=== PATIENT | female | born 1990 | race Two or more races ===

== ENCOUNTER 2019-05-02 14:14 | Outpatient (CLI) | payer OTHER ==
[2019-05-02 16:21] LABS: APPEARANCE,URINE SLIGHTLY-CLOUDY; BILIRUBIN,URINE NEGATIVE (NEGATIVE); COLOR,URINE YELLOW; GLUCOSE, URINE NEGATIVE (NEGATIVE); KETONES,URINE 20 mg/dL (NEGATIVE); LEUKOCYTE ESTERASE,URINE NEGATIVE (NEGATIVE); NITRITE,URINE NEGATIVE (NEGATIVE); PROTEIN,URINE NEGATIVE (NEGATIVE); URINE SPECIFIC GRAVITY 1.005; UROBILINOGEN,URINE NEGATIVE mg/dL (<2.0)
--- NOTE | 2019-05-02 16:28 | Non Stress Test Report ---
Non Stress Test Datetime Report Generated by CPN: 05/02/2019 16:28 DEMOGRAPHIC EGA NST: 37.6 INDICATION Indication for Study (NST) Other: LC MONITORING Monitor Explained: Monitor Explained; Test Explained; Patient Verbalized Understanding Time on Monitor: 05/02/2019 14:30 Time off Monitor: 05/02/2019 15:59 NST Duration: 89 NST INTERVENTIONS NST Interventions: PO Hydration Physician Notified NST: J Groves CNM BABY A: [id number] BABY A Movement : Present Contraction Frequency : irregular FHR Baseline : 125 Accelerations : 15X15 Decelerations : None Variability : Moderate 6-25bpm NST Review: Meets Criteria for Reactive NST NST Review and Verified By : Richie Li RN NST Results: Reactive NST COMMENTS NST Comments: CNM on unit reviewing FHT strip NST REPORT Report Trigger: Send Report
[2019-05-02 16:37] LABS: URINE AMPHETAMINES SCREEN NEGATIVE; URINE BARBITURATES SCREEN NEGATIVE; URINE BENZODIAZEPINES SCREEN NEGATIVE; URINE COCAINE SCREEN NEGATIVE; URINE MARIJUANA (THC) SCREEN NEGATIVE; URINE METHADONE SCREEN NEGATIVE; URINE PHENCYCLIDINE SCREEN NEGATIVE
== END 2019-05-02 16:09 | disposition home or self-care (01) ==
LOC: LC 14:14
PROVIDERS: ATTEND Student in an Organized Health Care Education/Training Program
PROC: 4A1HXCZ Monitoring of Products of Conception, Cardiac Rate, External Approach (ICD-10-PCS; principal; 2019-05-02)
DX: Z34.03 Encounter for supervision of normal first pregnancy, third trimester (principal); Z3A.37 37 weeks gestation of pregnancy
CPT/HCPCS: 59025; 80307; 81001; 84112

== ENCOUNTER 2019-05-17 03:15 | Inpatient (IN) | payer OTHER ==
[2019-05-17 04:13] LABS: APPEARANCE,URINE CLOUDY; BILIRUBIN,URINE NEGATIVE (NEGATIVE); COLOR,URINE YELLOW; GLUCOSE, URINE NEGATIVE (NEGATIVE); KETONES,URINE NEGATIVE (NEGATIVE); LEUKOCYTE ESTERASE,URINE TRACE (NEGATIVE); NITRITE,URINE NEGATIVE (NEGATIVE); PROTEIN,URINE NEGATIVE (NEGATIVE); URINE SPECIFIC GRAVITY 1.024; UROBILINOGEN,URINE NEGATIVE mg/dL (<2.0)
[2019-05-17] MEDS ORDERED: LIDOCAINE 1% INJ-PF (10 MG/ML) 30 ML SDV ONE (04:15)
[2019-05-17] MEDS ORDERED: PENICILLIN G-K 5 MILLION UNIT VIAL ONE ×4 (04:15→16:50)
[2019-05-17] MEDS ORDERED: OXYTOCIN 10 UNIT/ML VIAL ONE (04:15)
[2019-05-17] MEDS ORDERED: OXYTOCIN/NORMAL SALINE 20 UNIT/1,000 ML RTUINJ ONE (04:15)
[2019-05-17] MEDS ORDERED: MISOPROSTOL 0.2 MG TABLET ONE (04:15)
[2019-05-17] MEDS ORDERED: RINGERS SOLUTION,LACTATED 1,000 ML IV ONE (04:19)
[2019-05-17] MEDS ORDERED: PENICILLIN G POTASSIUM 5,000,000 UNIT in DEXTROSE 5%-WATER 100 ML IV ONE (04:19)
[2019-05-17 04:28] LABS: URINE AMPHETAMINES SCREEN NEGATIVE; URINE BARBITURATES SCREEN NEGATIVE; URINE BENZODIAZEPINES SCREEN NEGATIVE; URINE COCAINE SCREEN NEGATIVE; URINE MARIJUANA (THC) SCREEN NEGATIVE; URINE METHADONE SCREEN NEGATIVE; URINE PHENCYCLIDINE SCREEN NEGATIVE
[2019-05-17] MEDS ORDERED: OXYTOCIN/NORMAL SALINE 20 UNIT/1,000 ML RTUINJ IV PRN ×2 (04:36→19:19)
[2019-05-17 04:54] LABS: ABSOLUTE EOSINOPHILS # (AUTO) 0.1 10^3/uL (0.0-0.6); ABSOLUTE LYMPHOCYTES (AUTO) 2.2 10^3/uL (0.5-4.7); ABSOLUTE MONOCYTES (AUTO) 0.7 10^3/uL (0.1-1.4); ABSOLUTE NEUT (AUTO) 6.3 10^3/uL (1.7-8.2); BASOPHILS % (AUTO) 0.3 % (0-2); EOSINOPHILS % (AUTO) 1.2 % (0-6); HEMOGLOBIN 11.3 g/dL (12.0-15.5); LYMPHOCYTES % (AUTO) 23.8 % (13-45); MEAN CORPUSCULAR HEMOGLOBIN 27.9 pg (27.0-33.4); MEAN CORPUSCULAR HGB CONC 34.2 g/dL (32.0-36.0); MEAN CORPUSCULAR VOLUME 82 fl (80-97); PLATELET COUNT 248 10^3/uL (150-450); RED BLOOD COUNT 4.04 10^6/uL (3.72-5.28); RED CELL DISTRIBUTION WIDTH 15.3 % (11.5-14.0); SEGMENTED NEUTROPHILS % (AUTO) 67.7 % (42-78); TOTAL CELLS COUNTED % (AUTO) 100 %; WHITE BLOOD COUNT 9.3 10^3/uL (4.0-10.5)
--- NOTE | 2019-05-17 06:55 | Admission Physical ---
Datetime Report Generated by CPN: 05/17/2019 06:55 CURRENT ADMISSION Chief Complaint: Uterine Contractions; Suspected Ruptured Membranes Indication for Induction: PROM Admit Impression : Term, Intrauterine ; No Active Labor; Ruptured Membranes Admit Plan: Admit to Unit; Initiate Labor Induction Protocol ALLERGIES Medication Allergies: No Medication Allergies: No Known Allergies (05/17/2019) Latex: No Latex Allergies Food Allergies: none Environmental Allergies: none OBSTETRICAL HISTORY EDC: 05/17/2019 00:00 : 1 Para: 0 Gestational Diabetes: No Rh Sensitization: No Incompetent Cervix: No MARIO: No Infertility: No ART Treatment: No Uterine Anomaly: No IUGR: No Hx Previous C/S: No Macrosomia: No Hx Loss/Stillborn: No PIH: No Hx : No Placenta Previa/Abruption: No Depression/PP Depression: No PTL/PROM: No Post Hemorrhage: No Current Procedures: Ultrasound Obstetrical History Comments: G1 - current SEE RECORDS Alcohol: No Marijuana : No Cocaine: No Other Illicit Drugs: No Cigarettes: Never Smoker. [id number] MEDICAL HISTORY Diabetes: No Blood Transfusion: No Pulmonary Disease (Asthma, TB): No Breast Disease: No Hypertension: No Trophy Assembler Surgery: No Heart Disease: No Hosp/Surgery: Yes Autoimmune Disorder: No Anesthetic Complications: No Kidney Disease: No Abnormal Pap Smear: No Neuro/Epilepsy: No Psychiatric Disorders: No Other Medical Diseases: No Hepatitis/Liver Disease: No Significant Family History: No Varicosities/Phlebitis: No Trauma/Violence : No Thyroid Dysfunction: No Medical History Comments: wisdom teeth removal in 2015. INFECTIOUS HISTORY Gonorrhea: No Genital Herpes: No Chlamydia: No Tuberculosis: No Syphilis: No Hepatitis: No HIV/AIDS Exposure: No Rash or Viral Illness: No HPV: No PHYSICAL EXAM General: Normal HEENT: Normal Neurologic: Normal Thyroid: Deferred Heart: Normal Lungs: Normal Breast: Deferred Back: Normal Abdomen: Normal Genitourinary Exam: Normal Extremities: Normal DTRs: Normal Pelvic Type: Adequate Vital Signs: Reviewed VAGINAL EXAM Dilatation: 1 Effacement: 50 Station: -3 Contraction Comments: irreg to rare MEMBRANES Membranes: Ruptured Amniotic Fluid Color: Clear FETUS A EGA: 40.0 Monitoring: External US FHR- Baseline: 125 Variability: Moderate 6-25bpm Accelerations: 15X15 Decelerations: None FHR Category: Category I Presentation: Vertex Admit Comment: 28yo at 40+0ega presents for SROM a 0230. Clear fluid. GBS positive - PCN for GBS prophy. Begin pitocin for Actim Prom positive. Admit for PROM and anticipate . PLANS FOR LABOR AND DELIVERY Labor and Delivery: None Pain Management: Epidural Feeding Preference: Breast Benefit of Breast Feed Discussed: Yes Circumcision: N/A INFORMED CONSENT Informed Consent Obtained: Vaginal Delivery; Induction of Labor; Risks, Benefits and Alternatives Discussed Signature: with User ID: [email or web address]
[2019-05-17] MEDS: RINGERS SOLUTION,LACTATED 1,000 ML IV PRN ×2 (07:30→11:28)
[2019-05-17] MEDS: PENICILLIN G POTASSIUM 2,500,000 UNIT in DEXTROSE 5%-WATER 50 ML IV SCH ×3 (08:40→16:57)
[2019-05-17] MEDS ORDERED: FENTANYL/BUPIVACAINE/NS/PF 300 MCG/150 ML RTUINJ EPI ONE (12:30)
[2019-05-17] MEDS ORDERED: EPHEDRINE SULFATE INJ 50 MG/1 ML AMPULE ONE (12:30)
[2019-05-17] MEDS ORDERED: BUPIVACAINE HCL 0.25 % INJ/PF (2.5 MG/1 ML) 30 ML VIAL ONE (12:31)
[2019-05-17] MEDS ORDERED: DIPH/PERTUSS(ACELL)/TETANUS VAC/PF 0.5 ML SYR (>=10YO) IM PRN (19:19)
[2019-05-17] MEDS ORDERED: BENZOCAINE/MENTHOL AEROSOL SPRAY 56 ML TOP PRN (19:19)
[2019-05-17] MEDS ORDERED: ACETAMINOPHEN WITH CODEINE #3 TABLET PO PRN ×2 (19:19)
[2019-05-17] MEDS ORDERED: ZOLPIDEM TARTRATE 5 MG TABLET PO PRN (19:19)
[2019-05-17] MEDS ORDERED: DIBUCAINE 1% OINTMENT 28 GM TP PRN (19:19)
[2019-05-17] MEDS ORDERED: ACETAMINOPHEN 325 MG TABLET ONE (19:23)
[2019-05-17] MEDS: IBUPROFEN 800 MG TABLET PO SCH (21:56)
--- NOTE | 2019-05-17 22:06 | Delivery Summary ---
Del Sum A-C Datetime Report Generated by CPN: 05/17/2019 22:05 DELIVERY PERSONNEL DELIVERY PERSONNEL: [id number] Delivery Doctor:: Maira Boo MD Labor and Delivery Nurse:: Ginger Martinez RNlivestock farmer Nurse:: Jovita Li RN Nursery Nurse:: JÚNIOR olvera Upholstery Trimmer/BIAS CUTTER HELPER: Isabell Sebastian CNA II MATERNAL INFORMATION Delivery Anesthesia: Epidural Medications After Delivery: Pitocin Bolus-Please Comment Meds After Delivery Comment: 20 units in 1000mLs NS open bolus Delivery QBL: 50 Maternal Complications: None Provider Comments: of a viable female @1858 w/ an KARLEE w/ nuchal cord x 1 presentation; APGARS 9, 9; 1st deg midline vag lac LABOR SUMMARY EDC: 05/17/2019 00:00 No. Babies in Womb: 1 Attempted: No Labor Anesthesia: Epidural LABOR INFORMATION Reason for Induction: Not Applicable Onset of Labor: 05/17/2019 17:09 Complete Dilatation: 05/17/2019 18:30 Oxytocin: Augmentation Group B Beta Strep: Positive Antibiotics # of Doses: 4 Antibiotics Time of Last Dose: 1656 Name of Antibiotic Given: Penicillin Steroids Given: None Reason Steroids Not Administered: Not Applicable MEMBRANES Membranes Rupture Method: Spontaneous Rupture of Membranes: 05/17/2019 02:30 Length of Rupture (hr): 16.47 Amniotic Fluid Color: Clear Amniotic Fluid Amount: Small Amniotic Fluid Odor: Normal STAGES OF LABOR Stage 1 hr: 1 Stage 1 min: 21 Stage 2 hr: 0 Stage 2 min: 28 Stage 3 hr: 0 Stage 3 min: 5 Total Time in Labor hr: 1 Total Time in Labor min: 54 VAGINAL DELIVERY Episiotomy: None Laceration #1: Vaginal Laceration Extension #1: First Degree Laceration Repair: Yes Laceration Repair Note: 1st degree midline lac repaired w/2-0 Chromic Sponge Count Correct: N/A Sharps Count Correct: Yes CSECTION DELIVERY Primary Indication: N/A Secondary Indication: N/A CSection Incision: N/A BABY A INFORMATION Infant Delivery Date/Time: 05/17/2019 18:58 Method of Delivery: Vaginal Born in Route : No : N/A Forceps: N/A Vacuum Extraction: N/A Shoulder Dystocia : No PRESENTATION/POSITION BABY A Presentation: Cephalic Cephalic Presentation: Vertex Vertex Position: Right Occipital Anterior Breech Presentation: N/A PLACENTA INFORMATION BABY A Placenta Delivery Time : 05/17/2019 19:03 Placenta Method of Delivery: Spontaneous Placenta Status: Delivered SCORES BABY A Heart Rate 1 min: >100 bpm Resp Effort 1 min: Good Cry Reflex Irritability 1 min: Cough or Sneeze or Pulls Away Muscle Tone 1 min: Active Motion Color 1 min: Body [place], Extremities Blue Resuscitation Effort 1 min: Tactile Stimulation SCORE 1 MIN: 9 Heart Rate 5 min: >100 bpm Resp Effort 5 min: Good Cry Reflex Irritability 5 min: Cough or Sneeze or Pulls Away Muscle Tone 5 min: Active Motion Color 5 min: Body [place], Extremities Blue Resuscitation Effort 5 min: Tactile Stimulation SCORE 5 MIN: 9 INFANT INFORMATION BABY A Gestational Age at Delivery: 40.0 Gestational Status: Full Term- 39- 40.6 Weeks Infant Outcome : Liveborn Condition : Stable Infant Sex: Female IDENTIFICATION BABY A Infant Verification Date/Time: 05/17/2019 19:16 ID Band Number: [id number] Mother's Name Verified: Yes RN Verifying Infant: Tobi, RN and J, RN WEIGHT/LENGTH BABY A Birthweight (gm): 3320 Weight (lb): 7 Infant Weight (oz): 5 Length (in): 19.75 Length (cm): 50.17 CORD INFORMATION BABY A No. Cord Vessels: 3 Nuchal Cord : Around Neck x1, Loose Cord Blood Taken: Yes-For Storage (Mom's Blood type +) Infant Suction: None ASSESSMENT BABY A Infant Complications: Other Complications- Other: terminal mec Physical Findings at Delivery: Caput Succedaneum Infant Respirations: Appears Normal Skin to Skin: Yes Building Services Engineer/ALS Called : No Care By: D Bellavance RNC Transferred To: [facility] BABY B INFORMATION : N/A SIGNATURES Signature: with User ID: [email or web address]
[2019-05-18] MEDS: IBUPROFEN 800 MG TABLET PO SCH ×3 (06:11→21:12)
[2019-05-18 07:03] LABS: HEMATOCRIT 29.6 % (36.0-47.0); HEMOGLOBIN 10.1 g/dL (12.0-15.5); MEAN CORPUSCULAR HEMOGLOBIN 27.9 pg (27.0-33.4); MEAN CORPUSCULAR VOLUME 82 fl (80-97); PLATELET COUNT 219 10^3/uL (150-450); RED BLOOD COUNT 3.61 10^6/uL (3.72-5.28); RED CELL DISTRIBUTION WIDTH 15.2 % (11.5-14.0); WHITE BLOOD COUNT 13.6 10^3/uL (4.0-10.5)
[2019-05-18] MEDS: PRENATAL VITAMIN W DHA CAPSULE PO SCH (09:33)
[2019-05-18] MEDS: FERROUS SULFATE 325 MG TABLET PO SCH ×2 (09:33→18:30)
[2019-05-18] MEDS: DOCUSATE SODIUM 100 MG CAPSULE PO SCH ×2 (09:33→18:30)
[2019-05-18] MEDS: SENNOSIDES/DOCUSATE 8.6-50 MG 1 EACH TABLET PO SCH (09:33)
--- NOTE | 2019-05-18 10:43 | PDOC PROGRESS REPORT ---
Subjective-OB Progress Note for:: 05/18/19 Physical Exam (OB) Vital Signs: Temp Pulse Resp BP Pulse Ox 97.5 F 85 16 128/88 H 98 05/18/19 07:53 05/18/19 07:53 05/18/19 07:53 05/18/19 07:53 05/18/19 07:53 Intake & Output 05/17/19 05/18/19 05/19/19 06:59 06:59 06:59 Intake Total 496 300 Balance 496 300 Weight 94.7 kg - PIH/Pre-Eclampsia DTR's: 1 + Clonus: Negative Headache: Absent Epigastric Pain: No Visual Changes: No - Lochia Lochia Amount: Small 10-25 ml Lochia Color: Rubra/Red - Abdomen Description: Firm, Round Hernia Present: No Bowel Sounds: Normoactive Flatus Presence: Present Stool: No Fundal Description: Firm, Midline Fundal Height: u/u - u/2 Objective-Diagnostic Laboratory: 05/18/19 06:53 05/18/19 06:53 WBC 13.6 H RBC 3.61 L Hgb 10.1 L Hct 29.6 L MCV 82 MCH 27.9 MCHC 34.0 RDW 15.2 H Plt Count 219
[2019-05-19] MEDS: IBUPROFEN 800 MG TABLET PO SCH ×2 (05:48→16:20)
[2019-05-19] MEDS: PRENATAL VITAMIN W DHA CAPSULE PO SCH (10:14)
[2019-05-19] MEDS: FERROUS SULFATE 325 MG TABLET PO SCH ×2 (10:14→17:14)
[2019-05-19] MEDS: SENNOSIDES/DOCUSATE 8.6-50 MG 1 EACH TABLET PO SCH (10:14)
[2019-05-19] MEDS: DOCUSATE SODIUM 100 MG CAPSULE PO SCH ×2 (10:14→17:14)
--- NOTE | 2019-05-19 11:13 | PDOC DISCHARGE SUMMARY ---
Impression - Admit/DC Date/PCP Admission Date/Primary Care Provider: 05/17/19 04:20 AMPARO BUSTILLO MD Discharge Date: 05/19/19 - Discharge Diagnosis (1) PROM (premature rupture of membranes) Is this a current diagnosis for this admission?: Yes (2) Encounter for induction of labor Is this a current diagnosis for this admission?: Yes (3) Delivery normal Is this a current diagnosis for this admission?: Yes (4) Group B streptococcal carriage complicating Is this a current diagnosis for this admission?: Yes - Additional Information Discharge Diet: Regular Discharge Activity: Activity As Tolerated, Pelvic Rest [facility] [[facility]] Prescriptions: Ibuprofen [Motrin 800 mg Tablet] 800 mg PO Q8HP PRN #60 tablet PRN Reason: Home Medications: No122/Iron/Folic Acid [ Multi Tablet] 1 each PO DAILY 05/02/19 Ibuprofen [Motrin 800 mg Tablet] 800 mg PO Q8HP PRN #60 tablet 05/19/19 HPI Gestational Age: 40 Reason(s) for Admission: Induction of Labor, PROM Procedures: NST Intrapartum Procedure(s): Spontaneous Vaginal Delivery Complication(s): Laceration-Vaginal Laceration-Degree: 1st Results Laboratory Results: WBC 13.6 10^3/uL (4.0-10.5) H 05/18/19 06:53 RBC 3.61 10^6/uL (3.72-5.28) L 05/18/19 06:53 Hgb 10.1 g/dL (12.0-15.5) L 05/18/19 06:53 Hct 29.6 % (36.0-47.0) L 05/18/19 06:53 MCV 82 fl (80-97) 05/18/19 06:53 MCH 27.9 pg (27.0-33.4) 05/18/19 06:53 MCHC 34.0 g/dL (32.0-36.0) 05/18/19 06:53 RDW 15.2 % (11.5-14.0) H 05/18/19 06:53 Plt Count 219 10^3/uL (150-450) 05/18/19 06:53 Lymph % (Auto) 23.8 % (13-45) 05/17/19 04:30 [place] % (Auto) 7.0 % (3-13) 05/17/19 04:30 Eos % (Auto) 1.2 % (0-6) 05/17/19 04:30 Baso % (Auto) 0.3 % (0-2) 05/17/19 04:30 Absolute Neuts (auto) 6.3 10^3/uL (1.7-8.2) 05/17/19 04:30 Absolute Lymphs (auto) 2.2 10^3/uL (0.5-4.7) 05/17/19 04:30 Absolute Monos (auto) 0.7 10^3/uL (0.1-1.4) 05/17/19 04:30 Absolute Eos (auto) 0.1 10^3/uL (0.0-0.6) 05/17/19 04:30 Absolute Basos (auto) 0.0 10^3/uL (0.0-0.2) 05/17/19 04:30 Seg Neutrophils % 67.7 % (42-78) 05/17/19 04:30 Urine Color YELLOW 05/17/19 03:30 Urine Appearance CLOUDY 05/17/19 03:30 Urine pH 6.0 (5.0-9.0) 05/17/19 03:30 Ur Specific Pyrites 1.024 05/17/19 03:30 Urine Protein NEGATIVE mg/dL (NEGATIVE) 05/17/19 03:30 Urine Glucose (UA) NEGATIVE mg/dL (NEGATIVE) 05/17/19 03:30 Urine Ketones NEGATIVE mg/dL (NEGATIVE) 05/17/19 03:30 Urine Blood MODERATE (NEGATIVE) H 05/17/19 03:30 Urine Nitrite NEGATIVE (NEGATIVE) 05/17/19 03:30 Urine Bilirubin NEGATIVE (NEGATIVE) 05/17/19 03:30 Urine Urobilinogen NEGATIVE mg/dL (<2.0) 05/17/19 03:30 Ur Leukocyte Esterase TRACE (NEGATIVE) H 05/17/19 03:30 Urine Ascorbic Acid NEGATIVE (NEGATIVE) 05/17/19 03:30 Membranes Rupture POSITIVE (NEGATIVE) H 05/17/19 03:30 Urine Opiates Screen NEGATIVE 05/17/19 03:30 Urine Methadone Screen NEGATIVE 05/17/19 03:30 Ur Barbiturates Screen NEGATIVE 05/17/19 03:30 Ur Phencyclidine Scrn NEGATIVE 05/17/19 03:30 Ur Amphetamines Screen NEGATIVE 05/17/19 03:30 U Benzodiazepines Scrn NEGATIVE 05/17/19 03:30 Urine Cocaine Screen NEGATIVE 05/17/19 03:30 U Marijuana (THC) Screen NEGATIVE 05/17/19 03:30 RPR NONREACTIVE (NONREACTIVE) 05/17/19 04:30 Blood Type A POSITIVE 05/17/19 04:30 Antibody Screen NEGATIVE 05/17/19 04:30 Plan Plan of Treatment: follow up at [facility] in 4 weeks for post check
[2019-05-19 22:51] VITALS: BP 118/63
== END 2019-05-19 20:44 | disposition home or self-care (01) | DRG 807 ==
LOC: LC 03:15 → LR 04:20 → 2S 21:07
PROVIDERS: ADMIT Student in an Organized Health Care Education/Training Program; ATTEND Student in an Organized Health Care Education/Training Program
PROC: 10E0XZZ Delivery of Products of Conception, External Approach (ICD-10-PCS; principal; 2019-05-17)
PROC: 0HQ9XZZ Repair Perineum Skin, External Approach (ICD-10-PCS; 2019-05-17)
DX: O42.92 Full-term premature rupture of membranes, unspecified as to length of time between rupture and onset of labor (principal); Z37.0 Single live birth; O99.824 Streptococcus B carrier state complicating childbirth; O69.81X0 Labor and delivery complicated by cord around neck, without compression, not applicable or unspecified; O70.0 First degree perineal laceration during delivery; Z3A.40 40 weeks gestation of pregnancy
CPT/HCPCS: 36415; 80307; 81005; 84112; 85025; 85027; 86592; 86850; 86900; 86901; J2540; J2590; J3010; J3490; J7060